=== PATIENT | female | born 1945 | race Caucasian/White ===

== ENCOUNTER 2016-04-19 07:27 | Emergency (ER) | payer BC, MEDICARE ==
[~2016-04-19] VITALS: Ht 160 cm; Wt 75.0 kg
[~2016-04-19 07:27] MED LIST: AMBI10TA PO; BACL10TA PO; BENZ1CAP34 PO; LEVO137T2 PO; OMEP20TA OR; OXYC-360 PO; SIMV20TA OR
[2016-04-19 07:28] VITALS: BP 122/87; PULSE 106; RESP 24; O2SAT 97
--- NOTE | 2016-04-19 07:42 | PD ---
HPI Chief Complaint: Abdominal Pain Time Seen by Provider: 07:42 Travel History International Travel<30 days: No Contact w/Intl Traveler<30days: No Traveled to known affect area: No History of Present Illness HPI 70-year-old female came to the emergency room with history of vomiting and diarrhea that seems to be chronic. Patient has history of nonalcoholic cirrhosis. She lives in [place] and is here on vacation. Patient says that the vomiting and diarrhea got worse over last night. Her brought her in. She is also complaining of abdominal pain which seems to be generalized. The pain is chronic as well. Nothing makes the pain better or worse. She is holding a vomit bag currently with some emesis in it that looks nonbilious. Patient says she has a GI specialist in [place] but has not followed up with him in a while. Now that the symptoms are getting worse she made an appointment which is in June. Patient was tachycardic in triage. Patient seems anxious and in moderate distress. PFSH Past Medical History Narrative Medical List of her past medical history is reviewed from the nursing note. Cirrhosis: Yes Social History Tobacco Use: Yes Allergies-Medications (Allergen,Severity, Reaction): Coded Allergies: Compazine (Verified Allergy, Severe, Seizures, 04/19/16) Comments List of her allergies reviewed from the nursing note. Reported Meds & Prescriptions Reported Meds & Active Scripts Active Augmentin (Amoxicillin-Clavulanate) 500-125 mg Tab 500 Mg PO BID 10 Days Macrobid (Nitrofurantoin Monoh/Nitrofur Macro) 100 Mg Cap 100 Mg PO BID 5 Days Reported Hydroxyzine HCl 50 Mg Tab 50 Mg PO HS Trazodone (Trazodone HCl) 50 Mg Tab 50 Mg PO HS Lisinopril-Hctz 10-12.5 Mg Tab 1 Tab PO DAILY Synthroid (Levothyroxine Sodium) 200 Mcg Tab 200 Mcg PO DAILY Gabapentin 600 Mg Tab 600 Mg PO TID Furosemide 20 Mg Tab 20 Mg PO DAILY Venlafaxine ER 24 HR (Venlafaxine HCl) 150 Mg Tab 150 Mg PO DAILY Topiramate 100 Mg Tab 100 Mg PO DAILY Pantoprazole (Pantoprazole Sodium) 40 Mg Tab 40 Mg PO DAILY Narrative Medication List of her home medications reviewed from the nursing note. Review of Systems Except as stated in HPI: all other systems reviewed are Neg Physical Exam Narrative GENERAL: Awake, alert, anxious, moderate distress SKIN: Warm and dry. HEAD: Atraumatic. Normocephalic. EYES: Pupils equal and round. No scleral icterus. No injection or drainage. ENT: No nasal bleeding or discharge. Mucous membranes pink and moist. NECK: Trachea midline. No JVD. CARDIOVASCULAR: Regular rate and rhythm. No murmur appreciated. RESPIRATORY: No accessory muscle use. Clear to auscultation. Breath sounds equal bilaterally. GASTROINTESTINAL: Abdomen soft, non-tender, nondistended. Decreased bowel sounds. Hepatic and splenic margins not palpable. MUSCULOSKELETAL: No obvious deformities. No clubbing. No cyanosis. No edema. NEUROLOGICAL: Awake and alert. No obvious cranial nerve deficits. Motor grossly within normal limits. Normal speech. PSYCHIATRIC: Appropriate mood and affect; insight and judgment normal. Data Data Last Documented VS Vital Signs Date Time Temp Pulse Resp B/P Pulse Ox O2 Delivery O2 Flow Rate FiO2 04/19/16 10:35 95 20 131/86 98 Room Air Orders Complete Blood Count With Diff (04/19/16 07:49) Comprehensive Metabolic Panel (04/19/16 07:49) Lipase (04/19/16 07:49) Prothrombin Time / Inr (Pt) (04/19/16 07:49) Urinalysis - C+S If Indicated (04/19/16 07:49) Ct Abd/Pel W/O Iv Contrast (04/19/16 07:49) Iv Access Insert/Monitor (04/19/16 07:49) Ecg Monitoring (04/19/16 07:49) Oximetry (04/19/16 07:49) Morphine Inj (Morphine Inj) (04/19/16 08:00) Ondansetron Inj (Zofran Inj) (04/19/16 08:00) Sodium Chloride 0.9% Flush (Ns Flush) (04/19/16 08:00) Troponin I (04/19/16 07:49) Electrocardiogram (04/19/16 ) Sodium Chlorid 0.9% 500 Ml Inj (Ns 500 M (04/19/16 08:00) Ct Brain W/O Iv Contrast(Rout) (04/19/16 ) Drug Screen, Random Urine (04/19/16 08:27) Urine Culture (04/19/16 08:20) Nitrofurantoin Monohyd Macrocr (Macrobid (04/19/16 09:00) Sodium Chlor 0.9% 1000 Ml Inj (Ns 1000 M (04/19/16 09:15) Potassium Chloride Eff (K-Lyte Cl Eff) (04/19/16 09:15) Labs Laboratory Tests Test 04/19/16 04/19/16 08:05 08:20 White Blood Count 13.5 TH/MM3 Red Blood Count 5.87 MIL/MM3 Hemoglobin 17.2 GM/DL Hematocrit 49.6 % Mean Corpuscular Volume 84.5 FL Mean Corpuscular Hemoglobin 29.3 PG Mean Corpuscular Hemoglobin 34.7 % Concent Red Cell Distribution Width 14.0 % Platelet Count 254 TH/MM3 Mean Platelet Volume 8.1 FL Neutrophils (%) (Auto) 66.0 % Lymphocytes (%) (Auto) 23.3 % Monocytes (%) (Auto) 9.4 % Eosinophils (%) (Auto) 0.7 % Basophils (%) (Auto) 0.6 % Neutrophils # (Auto) 8.9 TH/MM3 Lymphocytes # (Auto) 3.2 TH/MM3 Monocytes # (Auto) 1.3 TH/MM3 Eosinophils # (Auto) 0.1 TH/MM3 Basophils # (Auto) 0.1 TH/MM3 CBC Comment DIFF FINAL Differential Comment Prothrombin Time 11.4 SEC Prothromb Time International 1.0 RATIO Ratio Sodium Level 134 MEQ/L Potassium Level 3.1 MEQ/L Chloride Level 98 MEQ/L Carbon Dioxide Level 23.5 MEQ/L Anion Gap 13 MEQ/L Blood Urea Nitrogen 22 MG/DL Creatinine 1.95 MG/DL Estimat Glomerular Filtration 26 ML/MIN Rate Random Glucose 110 MG/DL Calcium Level 9.4 MG/DL Total Bilirubin 1.0 MG/DL Aspartate Amino Transf 20 U/L (AST/SGOT) Alanine Aminotransferase 30 U/L (ALT/SGPT) Alkaline Phosphatase 124 U/L Troponin I LESS THAN 0.02 NG/ML Total Protein 8.0 GM/DL Albumin 4.3 GM/DL Lipase 190 U/L Urine Color YELLOW Urine Turbidity CLEAR Urine pH 6.5 Urine Specific [place] 1.014 Urine Protein TRACE mg/dL Urine Glucose (UA) NEG mg/dL Urine Ketones TRACE mg/dL Urine Occult Blood TRACE Urine Nitrite NEG Urine Bilirubin NEG Urine Urobilinogen LESS THAN 2.0 MG/DL Urine Leukocyte Esterase SMALL Urine WBC 10 /hpf Urine Squamous Epithelial 1 /hpf Cells Urine Bacteria MOD /hpf Urine Hyaline Casts 14 /lpf Urine Mucus FEW /lpf Microscopic Urinalysis Comment CULTURE INDICATED Urine Opiates Screen NEG Urine Barbiturates Screen NEG Urine Amphetamines Screen NEG Urine Benzodiazepines Screen NEG Urine Cocaine Screen NEG Urine Cannabinoids Screen NEG MDM Medical Decision Making Medical Screen Exam Complete: Yes Emergency Medical Condition: Yes Medical Record Reviewed: Yes Interpretation(s) Twelve-lead EKG was reviewed by me. Normal sinus rhythm, left axis deviation, diffuse ST T-wave depression. Heart rate of 94 bpm. Differential Diagnosis Acute gastritis, small bowel obstruction, acute gastroenteritis, acute cholecystitis Narrative Course 8:16 AM awaiting for the blood test results to come back. I have ordered pain medication and nausea medication for the patient. She is getting IV fluid bolus. Awaiting for the CAT scan to be done and resulted. 8:26 AM I was called by the nurse asked to evaluate the patient because she was complaining of left-sided facial numbness and left arm numbness. I went back and asked the patient and she told me that she's had this numbness since last night. However patient never mentioned this to either me or the nurse upon arrival. She is moving all 4 extremities with normal speech and normal mentation. I have ordered a CAT scan of her head at this point. Patient seems to be an extremely unreliable historian and very unfocused at this point. She keeps asking for pain medication for her abdomen. 9:[address] scan does not show any acute abnormality except for head CT that shows frontal sinusitis. I will discharge this patient home on antibiotics. Procedures EKG Prior to Arrival: Yes Diagnosis Primary Impression: acute on chronic abdominal pain Additional Impressions: Acute frontal sinusitis Qualified Code: J01.10 - Acute frontal sinusitis, recurrence not specified UTI (urinary tract infection) Qualified Code: N39.0 - Urinary tract infection without hematuria, site unspecified Dehydration Acute hypokalemia Renal insufficiency Referrals: Primary Care Physician 1 week Additional Instructions: Please return to the ER if the condition worsens or any other new concerns. Otherwise follow-up with your primary care. Take the medications as per the prescription direction. Med/Other Pt SpecificInfo: Prescription(s) given Scripts Amoxicillin-Clavulanate (Augmentin)500-125 mg [id number] Mg PO BID 10 Days Ref 0 Prov:Jonatan Rizo MD 04/19/16 Nitrofurantoin Monohydrate Macrocrystals (Macrobid)100 Mg [id number] Mg PO BID 5 Days Ref 0 Prov:Jonatan Rizo MD 04/19/16 Disposition: 01 DISCHARGE HOME Condition: Stable Jonatan Rizo MD Apr 19, 2016 07:42 Prov:Jonatan Rizo MD 04/19/16 Disposition: 01 DISCHARGE HOME Condition: Stable Jonatan Rizo MD Apr 19, 2016 07:42
[2016-04-19 07:45] VITALS: PULSE 99; RESP 25; O2SAT 99
[2016-04-19] MEDS ORDERED: SODIUM CHLORIDE 0.9% FLUSH 5 ML FLUSH IVF PRN (08:00)
[2016-04-19] MEDS ORDERED: ONDANSETRON HCL 4 MG/2 ML VIAL IVP ONE (08:00)
[2016-04-19] MEDS ORDERED: MORPHINE SULFATE 4 MG/ML INJ IV PUSH ONE (08:00)
[2016-04-19] MEDS ORDERED: SODIUM CHLORID 0.9% 500 ML INJ 500 ML IV ONE (08:00)
[2016-04-19] MEDS ORDERED: TRAZ50TA12 PO (08:04)
[2016-04-19] MEDS ORDERED: PANT40TA3 PO (08:04)
[2016-04-19] MEDS ORDERED: HYDR50TA94 PO (08:04)
[2016-04-19] MEDS ORDERED: VENL150T PO (08:04)
[2016-04-19] MEDS ORDERED: TOPI1TAB31 PO (08:04)
[2016-04-19] MEDS ORDERED: GABA600T PO (08:04)
[2016-04-19] MEDS ORDERED: LISI10TA PO (08:04)
[2016-04-19] MEDS ORDERED: FURO20TA PO (08:04)
[2016-04-19] MEDS ORDERED: LEVO.2 PO (08:04)
[2016-04-19 08:24] VITALS: O2SAT 97
[2016-04-19 08:28] LABS: AUTOMATED NEUTROPHIL # 8.9 TH/MM3 (1.8-7.7); BASOPHIL # 0.1 TH/MM3 (0-0.2); BASOPHIL % 0.6 % (0.0-2.0); EOSINOPHIL # 0.1 TH/MM3 (0-0.4); EOSINOPHIL % 0.7 % (0.0-4.0); HEMATOCRIT 49.6 % (35.0-46.0); HEMO FLAGS DIFF FINAL; LYMPH % 23.3 % (9.0-44.0); LYMPHOCYTE # 3.2 TH/MM3 (1.0-4.8); MEAN CELL VOLUME 84.5 FL (80.0-100.0); MEAN CORPUSCULAR HEMOGLOBIN 29.3 PG (27.0-34.0); MEAN CORPUSCULAR HGB CONC 34.7 % (32.0-36.0); MONO % 9.4 % (0.0-8.0); PLATELET COUNT 254 TH/MM3 (150-450); RED BLOOD COUNT 5.87 MIL/MM3 (4.00-5.30); WHITE BLOOD COUNT 13.5 TH/MM3 (4.0-11.0)
[2016-04-19 08:41] LABS: PROTHROMBIN TIME - PATIENT 11.4 SEC (9.8-11.6)
[2016-04-19 08:45] LABS: BACTERIA, URINE MOD /hpf; BLOOD, URINE TRACE (NEG); COMMENT (UR) CULTURE INDICATED; CULTURE IF INDICATED CULTURE INDICATED; GLUCOSE,URINE NEG (NEG); HYALINE CAST, URINE 14 /lpf (RARE); KETONE, URINE TRACE mg/dL (NEG); MUCUS URINE FEW /lpf (OCC); NITRITE,URINE NEG (NEG); PH, URINE 6.5 (5.0-8.5); SQUAMOUS EPITHELIAL CELL URINE 1 /hpf (0-5); URINE COLOR YELLOW (YELLW/STRAW)
[2016-04-19 08:49] LABS: ALT (GPT) 30 U/L (10-53); ANION GAP 13 MEQ/L (5-15); AST (GOT) 20 U/L (15-37); BICARBONATE 23.5 MEQ/L (21.0-32.0); BLOOD UREA NITROGEN 22 MG/DL (7-18); CHLORIDE 98 MEQ/L (98-107); GLOMERULAR FILTRATION RATE 26 ML/MIN (>89); POTASSIUM 3.1 MEQ/L (3.5-5.1); SODIUM (NA) 134 MEQ/L (136-145)
[2016-04-19 08:49] LABS: AMPHETAMINE, URINE NEG (NEG); BARBITURATES, URINE NEG (NEG); COCAINE, URINE NEG (NEG)
[2016-04-19 08:53] LABS: ALKALINE PHOSPHATASE 124 U/L (45-117)
--- NOTE | 2016-04-19 08:58 | RADRPT ---
EXAM DATE/TIME: 04/19/2016 08:33 [facility] COMPARISON: No previous studies available for comparison. INDICATIONS : Headache and altered mental status. RADIATION DOSE: 56.35 CTDIvol (mGy) MEDICAL HISTORY : None SURGICAL HISTORY : None. ENCOUNTER: Initial ACUITY: 1 day PAIN SCALE: 5/10 LOCATION: cranial TECHNIQUE: Multiple contiguous axial images were obtained of the head. Using automated exposure control and adj ustment of the mA and/or kV according to patient size, radiation dose was kept as low as reasonably a chievable to obtain optimal diagnostic quality images. FINDINGS: CEREBRUM: The ventricles are normal for age. No evidence of midline shift, mass lesion, hemorrhage or acute in farction. No extra-axial fluid collections are seen. POSTERIOR FOSSA: The cerebellum and brainstem are intact. The 4th ventricle is midline. The cerebellopontine angle i s unremarkable. EXTRACRANIAL: The visualized portion of the orbits is intact. SKULL: The calvaria is intact. No evidence of skull fracture. Right frontal sinus disease is evident. CONCLUSION: Right frontal sinus disease that could be cause of headache. Intracranial contents are otherwise unr emarkable. Coleman Hawkins MD FACR on April 19, 2016 at 8:56 Board Certified Radiologist. This report was verified electronically.
[2016-04-19] MEDS ORDERED: NITROFURANTOIN MONOHYD MACROCR 100 MG CAP PO ONE (09:00)
[2016-04-19] MEDS ORDERED: SODIUM CHLOR 0.9% 1000 ML INJ 1,000 ML IV ONE (09:15)
[2016-04-19] MEDS ORDERED: POTASSIUM CHLORIDE 25 MEQ EFFERVESCENT TAB PO ONE (09:15)
--- NOTE | 2016-04-19 09:16 | RADRPT ---
EXAM DATE/TIME: 04/19/2016 08:32 [facility] COMPARISON: No previous studies available for comparison. INDICATIONS : Vomiting, diarrhea, and diffuse abdominal pain since this morning. ORAL CONTRAST: No oral contrast ingested. RADIATION DOSE: 9.97 CTDIvol (mGy) MEDICAL HISTORY: Cirrhosis. SURGICAL HISTORY: Hysterectomy. Cholecystectomy. ENCOUNTER: Initial ACUITY: 1 day PAIN SCALE: 5/10 LOCATION: Bilateral abdomen TECHNIQUE: Volumetric scanning of the abdomen and pelvis was performed. Using automated exposure control and ad justment of the mA and/or kV according to patient size, radiation dose was kept as low as reasonably achievable to obtain optimal diagnostic quality images. FINDINGS: The lung bases are clear. Liver is somewhat small. Surgical clips are seen in the gallbladder fossa . Spleen is prominent. Pancreas and adrenal glands unremarkable. Right and left kidneys are unremarkable. Scattered radiopaque material is present in the colon. Pelvic contents are unremarkable. Review of bone windows reveals only degenerative changes. CONCLUSION: 1. Unremarkable bowel gas pattern. 2. I do not see an etiology for the patient's diffuse abdominal pain. 3. Liver is somewhat small and shrunken with a prominent spleen. Coleman Hawkins MD FACR on April 19, 2016 at 8:54 Board Certified Radiologist. This report was verified electronically.
[2016-04-19] MEDS ORDERED: MACR100C2 PO (09:39)
[2016-04-19] MEDS ORDERED: AUGM500T7 PO (09:39)
[2016-04-19 10:35] VITALS: BP 131/86; PULSE 95; RESP 20; O2SAT 98
--- NOTE | 2016-04-20 17:36 | EKG ---
Date Performed: 04/19/2016 Time Performed: 07:46:23 PTAGE: 70 years EKG: Sinus rhythm ST DEVIATION AND MODERATE T-WAVE ABNORMALITY, CONSIDER LATERAL ISCHEMIA ABNORMAL ECG NO PREVIOUS TRACING DOCTOR: Ronny Richard Interpretating Date/Time 04/20/2016 17:35:46
== END 2016-04-19 11:06 | disposition home or self-care (01) ==
LOC: NEPE 07:27
DX: R10.9 Unspecified abdominal pain (principal); K74.69 Other cirrhosis of liver; J01.10 Acute frontal sinusitis, unspecified; E86.0 Dehydration; N39.0 Urinary tract infection, site not specified; N28.9 Disorder of kidney and ureter, unspecified; B96.89 Other specified bacterial agents as the cause of diseases classified elsewhere; Z72.0 Tobacco use
CPT/HCPCS: 70450; 74176; 80053; 80307; 81001; 83690; 84484; 85025; 85610; 87086; 93005; 96374; 96375; 99284; J2270; J2405; J7030; J7040